=== PATIENT | male | born 1945 | race African-American/Black ===

== ENCOUNTER → 2017-07-11 | Outpatient (CLI) | payer MEDICARE, MEDICAID ==
[~2017-07-11] MED LIST: DIATR MEGLU/DIATRIZOATE SOLN 120ML ONE; LAMO25TA4 PO; LEVE500T78 PO; OMEP20CA10 PO; TAMS0.4C31 PO; TRAV5DRO4 BOTHEYE; ZOLP5TAB8 PO
== END | disposition home or self-care (01) ==
LOC: RAD 09:38
PROVIDERS: ATTEND Internal Medicine Gastroenterology
DX: K59.00 Constipation, unspecified (principal); R63.4 Abnormal weight loss
CPT/HCPCS: 74270; Q9963